=== PATIENT | male | born 1980 | race Caucasian/White ===

== ENCOUNTER 2016-09-27 18:54 | Emergency (ER) | payer SELFPAY ==
[2016-09-27] MEDS ORDERED: EPINEPHrine 1 mg/ml (1:1000) Inj IM STA (19:21)
[2016-09-27] MEDS ORDERED: DiphenhydrAMINE 50 mg/ml Inj IVP STA (19:21)
[2016-09-27] MEDS ORDERED: EPINEPHrine 1 mg/ml (1:1000) Inj ONE (19:22)
[2016-09-27] MEDS ORDERED: Sodium Chloride 0.9% 1,000 ML IV ONE (19:22)
[2016-09-27] MEDS ORDERED: DiphenhydrAMINE 50 mg/ml Inj ONE (19:22)
--- NOTE | 2016-09-27 19:43 | C.PDOC ---
History Of Present Illness 36 year old patient presents to the ED complaining of a generalized, itchy rash that began earlier today. Patient states he took Amoxicillin for the first time a few hours prior to the rash developing. Patient also complains of a dry throat. He did not take any medications for the rash. Patient denies any reaction before taking the medication, shortness of breath, fever, nausea, or vomiting. Time Seen by Provider: 09/27/16 19:16 Chief Complaint (Nursing): Allergic Reaction History Per: Patient History/Exam Limitations: no limitations Onset/Duration Of Symptoms: Hrs (earlier today) Current Symptoms Are (Timing): Still Present Context: Other Possible Cause: Medication Associated Symptoms: Skin Rash, Redness Home/EMS Treatment: None Severity: Moderate Recent travel outside of the [place]: No Past Medical History Reviewed: Historical Data, Nursing Documentation, Vital Signs Vital Signs: Last Vital Signs Temp 99.2 F 09/27/16 21:57 Pulse 99 H 09/27/16 21:57 Resp 20 09/27/16 21:57 BP 122/85 09/27/16 21:57 Pulse Ox 98 09/27/16 21:57 - Medical History PMH: No Chronic Diseases Family History: States: Hypertension - Social History Hx Alcohol Use: Yes Hx Substance Use: No Review Of Systems Except As Marked, All Systems Reviewed And Found Negative. Constitutional: Negative for: Fever ENT: Negative for: Mouth Swelling, Throat Swelling Respiratory: Negative for: Shortness of Breath Gastrointestinal: Negative for: Nausea, Vomiting Skin: Positive for: Rash (diffuse) Physical Exam - Physical Exam Appears: Non-toxic, No Acute Distress Skin: Warm, Dry, Rash (diffuse, hyperemia) Eye(s): bilateral: Normal Inspection Nose: Normal Oral Mucosa: Moist Tongue: Normal Appearing, No Swelling Lips: Normal Appearing, No Swelling Throat: Normal Neck: Normal ROM, Supple Chest: Symmetrical Cardiovascular: Rhythm Regular Respiratory: Normal Breath Sounds, No Rales, No Rhonchi, No Wheezing Gastrointestinal/Abdominal: Soft, No Tenderness Back: Normal Inspection Extremity: Normal ROM Neurological/Psych: Oriented x3, Normal Speech, Normal Cognition Gait: Steady ED Course And Treatment O2 Sat by Pulse Oximetry: 99 (room air) Pulse Ox Interpretation: Normal Medical Decision Making Medical Decision Making: Plan: * Bendryl * Epinephrine * Pepcid * Solu-Medrol * IV fluids * Reassess and disposition Progress: Pt markedly improved post meds. observed in the ED withouit rebound. Discussed never taking amoxil again as well as taking [place] ABX's dc home rx meds return new / worse Disposition Counseled Patient/Family Regarding: Diagnosis, Need For Followup - Disposition Referrals: Non [facility] Provider, [Primary Care Provider] - Disposition: HOME/ ROUTINE Disposition Time: 21:42 Condition: GOOD Additional Instructions: Return to the ED for any new or worsening symptoms NO MORE AMOXIL Prescriptions: DiphenhydrAMINE [Benadryl] 1 cap PO Q6H PRN #30 cap PRN Reason: rash Prednisone 1 tab PO DAILY #4 tablet Instructions: General Allergic Reaction (ED) Forms: Work/School/Gym Excuse Print Language: LAO - Clinical Impression Clinical Impression: Allergy to amoxicillin - Scribe Statement The provider has reviewed the documentation as recorded by the Nallelyibchristina Dey Provider Attestation: All medical record entries made by the Nallelyibchristina were at my direction and personally dictated by me. I have reviewed the chart and agree that the record accurately reflects my personal performance of the history, physical exam, medical decision making, and the department course for this patient. I have also personally directed, reviewed, and agree with the discharge instructions and disposition.
[2016-09-27 22:06] VITALS: BP 122/85; PULSE 99; RESP 20; TEMP 99.2
[2016-09-29 15:00] VITALS: O2SAT 99
== END 2016-09-27 21:57 | disposition home or self-care (01) ==
LOC: C.ER 18:54 → SUPCPDRO 18:54 → C.ER 21:57
DX: L27.0 Generalized skin eruption due to drugs and medicaments taken internally (principal); T36.0X5A Adverse effect of penicillins, initial encounter
CPT/HCPCS: 96361; 96372; 96374; 96375; 99284; J0171; J1200; J2930; J7040

== ENCOUNTER 2017-03-03 12:11 | Emergency (ER) | payer SELFPAY ==
[2017-03-03 12:16] VITALS: RESP 18; TEMP 98
[2017-03-03 13:16] LABS: RBC URINE 11 /hpf (0-3); URINE BACTERIA RARE (<OCC); URINE BILIRUBIN NEGATIVE (NEGATIVE); URINE BLOOD 1+ (NEGATIVE); URINE COLOR Amber (YELLOW); URINE GLUCOSE (UA) NORMAL (Normal); URINE KETONE TRACE mg/dL (NEGATIVE); URINE LEUKOCYTE ESTERASE TRACE Leu/uL (Negative); URINE PROTEIN 1+ mg/dL (NEGATIVE); WBC URINE 8 /hpf (0-5)
--- NOTE | 2017-03-03 13:18 | C.PDOC ---
History Of Present Illness 36 y/o M c PMHx penicillin allergy p/w rash x 2 hours. Patient states that he took amoxicillin 2 hours ago, not realizing that it was related to penicillin and began having his rash. He describes the rash as warm and pruritic and diffuse. Denies throat swelling, vomiting, dyspnea. He took the amoxicillin because he passed a kidney stone 3 days ago and obtained it from the [place]. He denies any urinary dysuria, abnormal discharge, or fever. Time Seen by Provider: 03/03/17 12:27 Chief Complaint (Nursing): Allergic Reaction Past Medical History Vital Signs: Last Vital Signs Temp 98 F 03/03/17 12:15 Pulse 108 H 03/03/17 12:15 Resp 18 03/03/17 12:15 BP 141/98 H 03/03/17 12:15 Pulse Ox 96 03/03/17 13:23 - Medical History PMH: Kidney Stones Family History: States: Hypertension - Social History Hx Alcohol Use: Yes Hx Substance Use: No - Immunization History Hx Tetanus Toxoid Vaccination: No Hx Influenza Vaccination: No Hx Pneumococcal Vaccination: No Review Of Systems Except As Marked, All Systems Reviewed And Found Negative. Constitutional: Negative for: Fever Respiratory: Negative for: Shortness of Breath Physical Exam - Physical Exam Appears: No Acute Distress Skin: Rash (erythematous, blanching, nontender rash to arms and thorax) Head: Normacephalic Oral Mucosa: No Drooling Tongue: No Swelling Lips: No Swelling Throat: No Drooling Neck: Supple Cardiovascular: Rhythm Regular Respiratory: Normal Breath Sounds, No Stridor, No Wheezing Gastrointestinal/Abdominal: Soft, No Tenderness Back: No CVA Tenderness Extremity: No Tenderness, No Swelling Pulses: Left Radial: Normal, Right Radial: Normal Neurological/Psych: Normal Speech, Normal Cognition Gait: Steady ED Course And Treatment O2 Sat by Pulse Oximetry: 96 Medical Decision Making Medical Decision Making: Will treat allergic reaction with Benadryl, steroids, pepcid. Otherwise, discontinue amoxicillin, check UA for infection. Disposition - Disposition Disposition: HOME/ ROUTINE Disposition Time: 13:43 Condition: STABLE Prescriptions: levoFLOXacin [Levaquin] 1 tab PO DAILY #7 tab Instructions: General Allergic Reaction (ED) Forms: [employer] ([place]) - Clinical Impression Clinical Impression: Allergy to amoxicillin
[2017-03-03 14:30] VITALS: BP 128/72; PULSE 89; O2SAT 98
== END 2017-03-03 14:30 | disposition home or self-care (01) ==
LOC: C.ER 12:11
DX: L27.0 Generalized skin eruption due to drugs and medicaments taken internally (principal); T36.0X5A Adverse effect of penicillins, initial encounter

== ENCOUNTER 2017-08-02 18:23 | Emergency (ER) | payer OTHER ==
[2017-08-02] MEDS ORDERED: Naproxen 550 mg Tab PO STA (19:41)
[2017-08-02 19:52] VITALS: BP 123/78; PULSE 113; RESP 18; TEMP 99.3
[2017-08-02 20:00] LABS: URINE BACTERIA RARE (<OCC); URINE BILIRUBIN NEGATIVE (NEGATIVE); URINE CLARITY Clear (Clear); URINE COLOR Straw (YELLOW); URINE GLUCOSE (UA) NORMAL (Normal); URINE LEUKOCYTE ESTERASE NEG Leu/uL (Negative); URINE PROTEIN NEGATIVE (NEGATIVE); URINE UROBILINOGEN NORMAL mg/dL (0.2-1.0)
[2017-08-02 20:02] LABS: URINE BLOOD 1+ (NEGATIVE)
--- NOTE | 2017-08-02 20:08 | C.PDOC ---
Time Seen by Provider: 08/02/17 19:05 Chief Complaint (Nursing): Fever History Per: Patient Onset/Duration Of Symptoms: Hrs (today) Current Symptoms Are (Timing): Still Present Associated Symptoms: Fever, Sore Throat, Cough, Myalgias Severity: Moderate Recent travel outside of the [place]: No Additional History Per: Prior Records Past Medical History Reviewed: Historical Data, Nursing Documentation, Vital Signs Vital Signs: Last Vital Signs Temp 99.3 F 08/02/17 19:51 Pulse 113 H 08/02/17 19:51 Resp 18 08/02/17 19:51 BP 123/78 08/02/17 19:51 Pulse Ox 94 L 08/02/17 19:51 - Medical History PMH: Kidney Stones Surgical History: No Surg Hx Family History: States: Hypertension - Social History Hx Alcohol Use: Yes Hx Substance Use: No - Immunization History Hx Tetanus Toxoid Vaccination: No Hx Influenza Vaccination: No Hx Pneumococcal Vaccination: No Review Of Systems Except As Marked, All Systems Reviewed And Found Negative. Constitutional: Positive for: Fever, Malaise ENT: Positive for: Throat Pain. Negative for: Ear Pain Respiratory: Positive for: Cough. Negative for: Shortness of Breath, Sputum Gastrointestinal: Negative for: Vomiting, Abdominal Pain, Diarrhea Genitourinary: Negative for: Dysuria Musculoskeletal: Positive for: Back Pain. Negative for: Neck Pain Skin: Negative for: Rash Neurological: Negative for: Weakness, Numbness, Seizures, Altered Mental Status Physical Exam - Physical Exam Appears: Non-toxic, No Acute Distress Skin: Normal Color, Warm, Dry, No Rash Head: Atraumatic, Normacephalic Eye(s): bilateral: Normal Inspection, PERRL, EOMI Oral Mucosa: Moist, No Drooling, No Trismus Throat: Erythema, No Exudate, No Drooling, No Mass Neck: Normal ROM, Supple Lymphatic: No Adenopathy Cardiovascular: Rhythm Regular Respiratory: Normal Breath Sounds, No Accessory Muscle Use Gastrointestinal/Abdominal: Soft, No Tenderness Back: No CVA Tenderness Extremity: Normal ROM Neurological/Psych: Oriented x3, Normal Speech, Normal Motor, Normal Sensation ED Course And Treatment O2 Sat by Pulse Oximetry: 98 Pulse Ox Interpretation: Normal Reassessment Condition: Improved Disposition Counseled Patient/Family Regarding: Studies Performed, Diagnosis, Need For Followup, Rx Given - Disposition Disposition: HOME/ ROUTINE Disposition Time: 20:09 Condition: IMPROVED Additional Instructions: Drink plenty of fluids. Follow up with your doctor. Return to the ER if you develop shortness of breath, chest pain, vomiting, abdominal pain, lethargy, worsening of symptoms or if you have any other concerns. Prescriptions: Guaifenesin/Dextromethorphan [Mucinex Dm ER 1,200-60 mg Tab] 1 tab PO BID PRN # 14 tab.er.12h PRN Reason: Cough And Congestion Naproxen [Naprosyn] 1 tab PO BID PRN #20 tab PRN Reason: Fever >100.4 F Instructions: Viral Upper Respiratory Infection, Adult (DC) Forms: AdverseEvents (English) Print Language: SWEDISH - Clinical Impression Clinical Impression: Fever, Upper respiratory infection
[2017-08-02 20:11] VITALS: O2SAT 98
== END 2017-08-02 20:22 | disposition home or self-care (01) ==
LOC: C.ER 18:23
DX: J06.9 Acute upper respiratory infection, unspecified (principal); R50.9 Fever, unspecified

== ENCOUNTER 2018-06-05 00:13 | Emergency (ER) | payer OTHER ==
[2018-06-05 02:20] LABS: BASO % 0.4 % (0.0-2.0); EOS # 0.1 K/uL (0.0-0.7); EOS % 0.7 % (0.0-4.0); HEMOGLOBIN 15.3 g/dL (12.0-18.0); LYMPH # 2.1 K/uL (1.0-4.3); LYMPH % 18.6 % (20.0-40.0); MEAN CELL VOLUME 84.2 fL (80.0-94.0); MEAN CORPUSCULAR HEMOGLOBIN 28.3 pg (27.0-31.0); MEAN CORPUSCULAR HGB CONC 33.7 g/dL (33.0-37.0); MEAN PLATELET VOLUME 8.6 fL (7.2-11.7); MONO # 0.8 K/uL (0.0-0.8); MONO % 7.1 % (0.0-10.0); NEUT # 8.3 K/uL (1.8-7.0); NEUT % 73.2 % (50.0-75.0); RBC 5.41 Mil/uL (4.40-5.90); RED CELL DISTRIBUTION WIDTH 12.9 % (11.5-14.5); WHITE BLOOD COUNT 11.3 K/uL (4.8-10.8)
[2018-06-05 02:35] LABS: ALB/GLOB RATIO 1.3 (1.0-2.1); ALBUMIN 4.3 g/dL (3.5-5.0); ALT/SGPT 86 U/L (21-72); AST/SGOT 34 U/L (17-59); BLOOD UREA NITROGEN 17 mg/dL (9-20); CALCIUM 9.5 mg/dl (8.6-10.4); GFR NON-AFRICAN AMERICAN > 60
[2018-06-05] MEDS ORDERED: Clindamycin 600mg/50ml NS 600 MG/50 ML BAG IVPB ONE (02:48)
[2018-06-05] MEDS ORDERED: Lidocaine 2% Inj (20ml) INFIL ONE (02:58)
[2018-06-05] MEDS ORDERED: Lidocaine 2% MPF (5 ml) Inj ONE (03:13)
[2018-06-05 03:42] VITALS: BP 110/69; PULSE 71; RESP 16; TEMP 97.5; O2SAT 97
--- NOTE | 2018-06-05 03:51 | C.PDOC ---
History Of Present Illness 37 year old male presents to the ED c/o left posterior thigh abscess for the past 4 days. Patient reports he usually gets ingrown hairs but not in the leg. Patient reports he noticed some blood coming out from the area today. Patient also reports he had fever for the past 2 days. Patient denies nausea, vomit, diarrhea, rash, weakness, numbness. Time Seen by Provider: 06/05/18 00:51 Chief Complaint (Nursing): Abnormal Skin Integrity History Per: Patient History/Exam Limitations: no limitations Onset/Duration Of Symptoms: Days (4) Current Symptoms Are (Timing): Still Present Location Of Injury: Left: Leg Quality Of Symptoms: Painful, Swollen, Draining Recent travel outside of the [place]: No Additional History Per: Patient Past Medical History Reviewed: Historical Data, Nursing Documentation, Vital Signs Vital Signs: Last Vital Signs Temp 97.5 F L 06/05/18 03:41 Pulse 71 06/05/18 03:41 Resp 16 06/05/18 03:41 BP 110/69 06/05/18 03:41 Pulse Ox 97 06/05/18 03:41 - Medical History PMH: Kidney Stones Surgical History: No Surg Hx Family History: States: Hypertension - Social History Hx Alcohol Use: Yes Hx Substance Use: No - Immunization History Hx Tetanus Toxoid Vaccination: No Hx Influenza Vaccination: No Hx Pneumococcal Vaccination: No Review Of Systems Constitutional: Positive for: Fever. Negative for: Chills Cardiovascular: Negative for: Chest Pain Respiratory: Negative for: Shortness of Breath Gastrointestinal: Negative for: Nausea, Vomiting, Abdominal Pain Musculoskeletal: Positive for: Leg Pain Skin: Positive for: Other (abscess) Neurological: Negative for: Weakness, Numbness Physical Exam - Physical Exam Appears: Non-toxic, No Acute Distress Skin: Normal Color, Warm, Dry Head: Atraumatic, Normacephalic Eye(s): bilateral: Normal Inspection Neck: Normal ROM, Supple Chest: Symmetrical Cardiovascular: Rhythm Regular Respiratory: Normal Breath Sounds, No Rales, No Rhonchi, No Wheezing Extremity: Normal ROM, Tenderness (left posterior thigh), Capillary Refill (< 2 seconds), Other (3 cm area with (+) fluctuance, drainage with surrounding erythema of approximatelly 8-10 cm surrounding the abscess) Pulses: Left Dorsalis Pedis: Normal, Right Dorsalis Pedis: Normal Neurological/Psych: Oriented x3, Normal Speech, Normal Cognition, Normal Motor, Normal Sensation Gait: Steady ED Course And Treatment - Laboratory Results Result Diagrams: 06/05/18 02:16 06/05/18 02:16 Lab Results: Total Bilirubin 1.2 mg/dL (0.2-1.3) 06/05/18 02:16 AST 34 U/L (17-59) 06/05/18 02:16 ALT 86 U/L (21-72) H 06/05/18 02:16 Alkaline Phosphatase 138 U/L (38-126) H 06/05/18 02:16 Total Protein 7.5 g/dL (6.3-8.3) 06/05/18 02:16 Albumin 4.3 g/dL (3.5-5.0) 06/05/18 02:16 Globulin 3.2 gm/dL (2.2-3.9) 06/05/18 02:16 Albumin/Globulin Ratio 1.3 (1.0-2.1) 06/05/18 02:16 O2 Sat by Pulse Oximetry: 97 (ON RA) Pulse Ox Interpretation: Normal - Incision & Drainage Of Abscess Anesthesia: Lidocaine 2% Used During Procedure: Oxygen Prep Used: Sterile Water, Betadine Procedure: Incised W/Scalpel Blade#:, Drained Pus, Irrigated Cavity W/Saline, Probed To Break Up Loculations, Packed W/Gauze, Cultures Obtained And Sent To Lab Medical Decision Making Medical Decision Making: Plan: * Labs * Clindamycin IVPB * Toradol 30 mg IVP On reassessment, patient is resting comfortably, and is in no acute distress. Patient was instructed to follow up with physician/clinic in 1-2 days for further evaluation Disposition - Disposition Referrals: [facility] [Outside] [facility] [Outside] Disposition: HOME/ ROUTINE Disposition Time: 03:52 Condition: STABLE Additional Instructions: if there is any worsening such as more redness, pain, fever, or vomiting. Come back to the ED on Wednesday for wound check and packing removal. 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 - Scribe Statement The provider has reviewed the documentation as recorded by the Scribe Ector Marx All medical record entries made by the Nallelyibe were at my direction and personally dictated by me. I have reviewed the chart and agree that the record a ccurately reflects my personal performance of the history, physical exam, medical decision making, and the department course for this patient. I have also personally directed, reviewed, and agree with the discharge instructions and disposition.
== END 2018-06-05 04:24 | disposition home or self-care (01) ==
LOC: C.ER 00:13
DX: L02.416 Cutaneous abscess of left lower limb (principal)
CPT/HCPCS: 10060; 80053; 85025; 87070; 87181; 96374; 99284; J1885

== ENCOUNTER 2018-06-07 09:47 | Emergency (ER) | payer OTHER ==
[2018-06-07 09:55] VITALS: BP 124/79; PULSE 65; RESP 18; TEMP 97.4; O2SAT 98
--- NOTE | 2018-06-07 10:18 | C.PDOC ---
History Of Present Illness 37 y/o male comes in for a wound check. Patient had an abscess on his left posterior thigh that was drained & packed 2 days ago. Patient also complains of pain to the area but has no other symptoms. Patient is currently taking clindamycin and is on day 3 out of 10. Time Seen by Provider: 06/07/18 10:01 Chief Complaint (Nursing): Abnormal Skin Integrity History Per: Patient History/Exam Limitations: no limitations Onset/Duration Of Symptoms: Days Current Symptoms Are (Timing): Still Present Past Medical History Reviewed: Historical Data, Nursing Documentation, Vital Signs Vital Signs: Last Vital Signs Temp 97.4 F L 06/07/18 09:53 Pulse 65 06/07/18 09:53 Resp 18 06/07/18 09:53 BP 124/79 06/07/18 09:53 Pulse Ox 98 06/07/18 09:53 - Medical History PMH: Kidney Stones Family History: States: Hypertension - Social History Hx Alcohol Use: Yes Hx Substance Use: No - Immunization History Hx Tetanus Toxoid Vaccination: No Hx Influenza Vaccination: No Hx Pneumococcal Vaccination: No Review Of Systems Constitutional: Negative for: Fever, Chills Cardiovascular: Negative for: Chest Pain Respiratory: Negative for: Shortness of Breath Gastrointestinal: Negative for: Vomiting, Abdominal Pain Skin: Positive for: Other (Abscess and pain on L posterior thigh) Neurological: Negative for: Weakness, Numbness Physical Exam - Physical Exam Appears: Non-toxic, No Acute Distress Skin: Other (Drained abscess to left posterior thigh about 4cm with packing in palce, surrounding erythema, no active purulent discharge) Head: Atraumatic, Normacephalic Eye(s): bilateral: Normal Inspection Oral Mucosa: Moist Neck: Supple Chest: Symmetrical Cardiovascular: Rhythm Regular, No Murmur Respiratory: Normal Breath Sounds, No Rales, No Rhonchi, No Wheezing Extremity: Bilateral: Normal ROM Neurological/Psych: Oriented x3, Normal Speech ED Course And Treatment O2 Sat by Pulse Oximetry: 98 (RA) Pulse Ox Interpretation: Normal Progress - Re-Evaluation Re-evaluation Note: 06/07/18 10:45 Packing removed and replaced. Wound was cleaned. New dressing was applied. Medical Decision Making Medical Decision Making: Patient positive for MRSA, cx sensitive to clindamycin, which he is already taking. Advised patient to finish abx course. Disposition - Disposition Disposition: HOME/ ROUTINE Disposition Time: 10:46 Condition: STABLE Additional Instructions: JAG MOROCHO, thank you for letting us take care of you today. Your provider was France Saavedra MD and you were treated for LT THIGH PAIN. The emergency medical care you received today was directed at your acute symptoms. If you were prescribed any medication, please fill it and take as directed. It may take several days for your symptoms to resolve. Return to the Emergency Department if your symptoms worsen, do not improve, or if you have any other problems. Please contact your doctor or call one of the physicians/clinics you have been referred to that are listed on the Patient Visit Information form that is included in your discharge packet. Bring any paperwork you were given at discharge with you along with any medications you are taking to your follow up visit. Our treatment cannot replace ongoing medical care by a primary care provider outside of the emergency department. Thank you for allowing the [facility] team to be part of your care today. If you had an X-Ray or CT scan: A Radiologist will review the ED reading if any change in treatment is needed we will contact you. If you had a blood, urine, or wound culture: It will take several days for the results, if any change in treatment is needed we will contact you. If you had an STI test: It will take 48 hours for the results. Please call after 1 week if you have not heard back. Return in 3 days for wound check. Return sooner for any new or worsening symptoms. Continue antibiotics as prescribed. Instructions: Abscess Incision and Drainage (DC) Forms: Gen Discharge Inst Estonian, [employer] (Estonian) Print Language: GIBRALTARIAN - Clinical Impression Clinical Impression: Wound check, abscess - Scribe Statement The provider has reviewed the documentation as recorded by the Terrance Capone Provider Attestation: All medical record entries made by the Terrance were at my direction and personally dictated by me. I have reviewed the chart and agree that the record accurately reflects my personal performance of the history, physical exam, medical decision making, and the department course for this patient. I have also personally directed, reviewed, and agree with the discharge instructions and disposition.
== END 2018-06-07 10:51 | disposition home or self-care (01) ==
LOC: C.ER 09:47
DX: Z51.89 Encounter for other specified aftercare (principal); L02.416 Cutaneous abscess of left lower limb